=== PATIENT | female | born 1970 | race Caucasian/White ===

== ENCOUNTER → 2019-03-07 | Outpatient (REF) | payer MEDICAID ==
[2019-03-12 14:10] LABS: HPV HYBRID CAPTURE II Negative (Negative)
== END ==
LOC: M LAB REF 13:53 → M LAB LCGH 13:53
PROVIDERS: ATTEND Obstetrics & Gynecology
DX: Z12.4 Encounter for screening for malignant neoplasm of cervix (principal)

== ENCOUNTER → 2019-06-13 | Outpatient (REF) | payer OTHER | LOC: M LAB LCGH 14:58 | PROVIDERS: ATTEND Surgery | DX: R11.2 Nausea with vomiting, unspecified (principal); R93.3 Abnormal findings on diagnostic imaging of other parts of digestive tract ==